=== PATIENT | male | born 1930 | race Caucasian/White ===

== ENCOUNTER 2017-08-01 13:49 | Emergency (ER) | payer OTHER ==
[~2017-08-01] VITALS: Ht 175.3 cm; Wt 83.9 kg
--- NOTE | 2017-08-01 17:06 | ED NOSE COMPLAINT ---
History of Present Illness General Chief Complaint: Epistaxis/Nasal Foreign Body Stated Complaint: NOSEBLEED Source: patient Exam Limitations: no limitations Vital Signs & Intake/Output Vital Signs & Intake/Output Vital Signs Date Time Temp Pulse Resp B/P B/P Pulse O2 O2 Flow FiO2 Mean Ox Delivery Rate 08/01 1625 62 200/88 08/01 1358 97.5 58 15 162/70 96 Room Air Room Air Allergies Coded Allergies: No Known Allergies (08/01/17) Reconcile Medications Sulfamethoxazole/Trimethoprim (Bactrim Ds Tablet) 800 MG-160 MG TABLET 1 TAB PO BID NOSE BLEED CATHETER Triage Note: PT TO ED FOR C/C OF EPISTAXIS THIS MORNING X 30-45 MINUTES. PT IS ON PRADAXA. NO ACTIVE BLEEDING AT THIS TIME IN TRIAGE. 4 DAYS AGO PT HAD 2 AREAS CAUTERIZED IN THE RIGHT NOSTRIL. BLEEDING OCCURED FROM SAME NOSTRIL TODAY. Triage Nurses Notes Reviewed? yes HPI: Patient presents for evaluation of a sudden onset of a nose bleeding episode at home this morning. Patient pinched his nose together and applied ice to the back of the neck with resolution. The bleeding began again however after climbing the stairs after some light shopping. Past History Travel History Traveled to [place] past 21 day No Medical History Any Pertinent Medical History? see below for history Neurological: CVA Cardiovascular: AFIB, hypertension, hyperlipidemia, QUADRUPAL BIPASS CARDIAC STENTS Endocrine: THYROIDECTOMY Blood Disorders: NONE Cancer(s): thyroid cancer [employer] HOT DIP PLATING/Reproductive: NONE Surgical History Surgical History: non-contributory Psychosocial History What is your primary language Hungarian Tobacco Use: Never used ETOH Use: denies use Illicit Drug Use: denies illicit drug use Family History Hx Contributory? No Review of Systems Review of Systems Constitutional: Reports: no symptoms. EENTM: Reports: see HPI. Respiratory: Reports: no symptoms. Cardiovascular: Reports: no symptoms. GI: Reports: no symptoms. Genitourinary: Reports: no symptoms. Musculoskeletal: Reports: no symptoms. Skin: Reports: no symptoms. Neurological/Psychological: Reports: no symptoms. Hematologic/Endocrine: Reports: no symptoms. Immunologic/Allergic: Reports: no symptoms. All Other Systems: Reviewed and Negative Physical Exam Physical Exam Nose: active bleeding (RIGHT NOSTRIL) Comments: Gen.: Well-nourished, well-developed, no acute respiratory distress. Head: Normocephalic, atraumatic. Eyes: Normal inspection bilaterally Ears: Normal inspection bilaterally Nose: See above Throat/mouth : Moist mucosa Neck: Supple, full range of motion, no goiter Lungs: Quiet respirations Back: Normal range of motion Extremities: Normal range of motion grossly, no cyanosis clubbing or edema of the upper extremities Neurologic: Cranial nerves grossly intact, speech is clear Skin: warm and dry Psychiatric: Calm, cooperative, no apparent delusions or hallucinations Progress Differential Diagnoses I considered the following diagnoses in my evaluation of the patient: epistaxis trauma cancer septal hematoma Plan of Care: f/u ent Initial ED EKG: none Comments: 08/01/2017 5:06:03 PM Rhino Rocket placed in right nostril without difficulty. 08/01/2017 6:13:16 PM patient denies swallowing blood and appears to have only a minor trickle from the right nostril. I feel this will continue to settle down over the next few hours. Patient feels comfortable returning home. Departure Departure Disposition: HOME OR SELF CARE Condition: Stable Clinical Impression Primary Impression: Epistaxis Referrals: Simeon LEAHY,Clifton Mahmood (PCP/Family) Additional Instructions: Keep the balloon catheter in place and arrange for follow-up appointment with your throat doctor in 3 days. Return if any concerns or sudden worsening. Departure Forms: Customer Survey General Discharge Information Prescriptions: Current Visit Scripts Sulfamethoxazole/Trimethoprim (Bactrim Ds Tablet) 1 TAB PO BID #10 TAB Procedures Epistaxis/Nasal Foreign Body Status: bleeding Bleeding Site: right nostril Nasal Rocket: Right: Inserted Anterior, Inserted Posterior.
[2017-08-01] MEDS ORDERED: BACTRIM DS TAB1 EACH PO (18:14)
[2017-08-01 18:24] VITALS: BP 172/84
== END 2017-08-01 18:24 ==
LOC: ERH 13:49
DX: R04.0 Epistaxis (principal)